=== PATIENT | male | born 1995 | race Caucasian/White ===

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

== ENCOUNTER → 2018-05-29 | Outpatient (REF) | payer BC ==
[~2018-05-29] MED LIST: MULT1TAB8 PO
== END ==
LOC: M LABDRWAD 19:03
DX: N46.9 Male infertility, unspecified (principal)

== ENCOUNTER → 2021-04-11 | Outpatient (CLI) | payer BC ==
--- NOTE | 2021-04-11 08:45 | PFTRPT ---
Height: 73.00 Inches Weight: 186.00 Lbs BSA: 2.09 Diagnosis: J45.909 DATE: 04/11/2021 ORDERING PHYSICIAN: MERARI De La Rosa Pre and post bronchodilator studies have excellent technical quality. Forced vital capacity is normal. FEV1 is in proportion. Obstructive index is therefore normal. Expiratory limit of the flow-volume loop is normal. No significant bronchodilator response is identified. Total lung capacity is normal. Residual volume is generally in proportion. Diffusing capacity is minimally elevated. No hemoglobin available for correction. Airway resistance and conductance are normal. IMPRESSION: Elevated diffusing capacity can be in patients with underlying asthma. Clinical correlation with the above is necessary. MTDD
== END ==
LOC: M CARPUL 08:05
PROVIDERS: ATTEND Physician Assistant
DX: J45.909 Unspecified asthma, uncomplicated (principal)